=== PATIENT | male | born 1945 | race Caucasian/White ===

== ENCOUNTER 2019-09-06 15:05 | Emergency (ER) | payer OTHER ==
[~2019-09-06] VITALS: Ht 167.6 cm; Wt 81.6 kg
--- NOTE | 2019-09-06 15:34 | NUR ---
ermd at bedside for hx and physical
[2019-09-06] MEDS ORDERED: LIDOCAINE HCL 1% 20 ML VIAL IJ ONE (15:45)
[2019-09-06] MEDS ORDERED: TDAP DIPH,PERTUSS,TET VAC/PF 0.5 ML DISP.SYRIN IM ONE ×2 (15:45→15:46)
[2019-09-06] MEDS ORDERED: LIDOCAINE HCL 1% 20 ML VIAL ONE (15:46)
--- NOTE | 2019-09-06 17:10 | NUR ---
Patient discharged to home in stable condition. Written and verbal after care instructions given. Patient verbalizes understanding of instructions. Stressed follow up or return to ER for worsening s/s. PT WALKS IN STEADY GAIT.
[2019-09-06] MEDS ORDERED: NEOMY/BACITRA/POLYMYXIN B OINT UD PACKET TP ONE ×2 (17:24→17:30)
== END 2019-09-06 17:10 | disposition home or self-care (01) ==
LOC: ER 15:07
PROC: 0HQGXZZ Repair Left Hand Skin, External Approach (ICD-10-PCS; principal; 2019-09-06)
DX: S61.412A Laceration without foreign body of left hand, initial encounter (principal); W01.0XXA Fall on same level from slipping, tripping and stumbling without subsequent striking against object, initial encounter; Y92.89 Other specified places as the place of occurrence of the external cause; T14.8XXA Other injury of unspecified body region, initial encounter
CPT/HCPCS: 12002; 73130; 90471; 90715; 99283; J3490; A4217; A4663

== ENCOUNTER 2019-09-08 13:20 | Emergency (ER) | payer MEDICARE, OTHER ==
[~2019-09-08] VITALS: Ht 170.2 cm; Wt 81.6 kg
--- NOTE | 2019-09-08 13:38 | NUR ---
Patient discharged to home in stable condition. Written and verbal after care instructions given. Patient verbalizes understanding of instructions. Stressed follow up or return to ER for worsening s/s.
== END 2019-09-08 13:40 | disposition home or self-care (01) ==
LOC: ER 13:20
DX: S61.412D Laceration without foreign body of left hand, subsequent encounter (principal); W45.8XXD Other foreign body or object entering through skin, subsequent encounter
CPT/HCPCS: A4663